=== PATIENT | male | born 1945 ===

== ENCOUNTER 2021-06-06 05:39 | Emergency (ER) | payer SELFPAY ==
[~2021-06-06] VITALS: Ht 162.6 cm; Wt 75.0 kg
--- NOTE | 2021-06-06 06:07 | PHYS DOC ---
General Adult HPI: HPI: Patient is a 76-year-old male presenting with granddaughter and [id number] for urinary retention. Onset was 3 days ago without any obvious trauma, ingestion, exposure, or mechanism of injury. Nothing known makes better or worse. Patient describes focal dull pressure and pain near bladder/suprapubic region. He has had episodes like this in the past in [place], states he typically has urinary retention of unknown etiology requiring placement of a Canales catheter that is removed later in the week. He has no known medical issues other than occasional urinary tract infections, takes no medications on a daily basis, has no other complaints today. Does admit he is fully vaccinated against COVID-19 Review of Systems: Review of Systems: Fourteen body systems of review of systems have been reviewed. See HPI for pertinent positives and negative responses, other linda all other systems are negative, non-pertinent or non-contributory Heart Score: C/O Chest Pain: No Risk Factors: Risk Factors: DM, Current or recent (<one month) smoker, HTN, HLP, family history of CAD, obesity. Risk Scores: Score 0 - 3: 2.5% MACE over next 6 weeks - Discharge Home Score 4 - 6: 20.3% MACE over next 6 weeks - Admit for Clinical Observation Score 7 - 10: 72.7% MACE over next 6 weeks - Early Invasive Strategies Physical Exam: PE: Constitutional: Well developed, well nourished, no acute distress, non-toxic appearance. HENT: Normocephalic, atraumatic, bilateral external ears normal, oropharynx moist, no oral exudates, nose normal. Eyes: PERRLA, EOMI, conjunctiva normal, no discharge. Neck: Normal range of motion, no tenderness, supple, no stridor. Cardiovascular: Heart rate regular, sinus rhythm, no murmurs rubs or gallops Lungs & Thorax: Bilateral breath sounds clear to auscultation Abdomen: Bowel sounds normal, soft, mild suprapubic discomfort with palpation, no rebound or guarding, no masses, no pulsatile masses. Nonsurgical abdomen, no peritoneal signs Skin: Warm, dry, no erythema, no rash. Back: No tenderness, no CVA tenderness. Extremities: No tenderness, no cyanosis, no clubbing, ROM intact, no edema. Neurologic: Alert and oriented X 3, grossly normal motor & sensory function, no focal deficits noted. Psychologic: Affect normal, judgement normal, mood normal. Current Patient Data: Labs: Laboratory Tests Test 06/06/21 06:04 06/06/21 06:10 White Blood Count 9.9 x10^3/uL Red Blood Count 4.51 x10^6/uL Hemoglobin 13.7 g/dL Hematocrit 40.7 % Mean Corpuscular Volume 90 fL Mean Corpuscular Hemoglobin 30 pg Mean Corpuscular Hemoglobin Concent 34 g/dL Red Cell Distribution Width 12.8 % Platelet Count 199 x10^3/uL Neutrophils (%) (Auto) 89 % Lymphocytes (%) (Auto) 6 % Monocytes (%) (Auto) 4 % Eosinophils (%) (Auto) 0 % Basophils (%) (Auto) 0 % Neutrophils # (Auto) 8.8 x10^3/uL Lymphocytes # (Auto) 0.6 x10^3/uL Monocytes # (Auto) 0.4 x10^3/uL Eosinophils # (Auto) 0.0 x10^3/uL Basophils # (Auto) 0.0 x10^3/uL Sodium Level 141 mmol/L Potassium Level 3.8 mmol/L Chloride Level 103 mmol/L Carbon Dioxide Level 28 mmol/L Anion Gap 10 Blood Urea Nitrogen 17 mg/dL Creatinine 0.9 mg/dL Estimated GFR (Cockcroft-Gault) 81.8 Glucose Level 129 mg/dL Calcium Level 8.6 mg/dL Troponin I High Sensitivity 10 ng/L Urine Collection Type U cath Urine Color Yellow Urine Clarity Clear Urine pH 7.0 Urine Specific [place] 1.010 Urine Protein Negative mg/dL Urine Glucose (UA) Negative mg/dL Urine Ketones (Stick) Negative mg/dL Urine Blood Moderate Urine Nitrite Negative Urine Bilirubin Negative Urine Urobilinogen Dipstick 0.2 mg/dL Urine Leukocyte Esterase Negative Urine RBC 3-5 /HPF Urine WBC 0 /HPF Urine Squamous Epithelial Cells None /LPF Urine Bacteria Few /HPF Vital Signs: Vital Signs Date Time Temp Pulse Resp B/P (MAP) Pulse Ox O2 Delivery O2 Flow Rate FiO2 06/06/21 06:33 98.1 86 22 220/141 (167) 97 Room Air 98.1 Vital Signs Date Time Temp Pulse Resp B/P (MAP) Pulse Ox O2 Delivery O2 Flow Rate FiO2 06/06/21 06:48 80 16 145/86 (105) 98 Room Air 06/06/21 06:33 98.1 98.1 EKG: EKG: [] Radiology/Procedures: Radiology/Procedures: [] Course & Med Decision Making: Course & Med Decision Making Airway patent, breathing unlabored, IV access and vitals obtained concerning for hypertension only History physical exam and comprehensive ER work-up obtained nonconcerning for any emergent or surgical issues Canales catheter replaced at the request of patient and family at bedside with ~550ml urine output and immediate relief in symptoms Disclosed entirety of ER work-up with patient who is now asymptomatic and family at bedside, discussed unknown cause of urinary retention and need for further work-up such as CT abdomen pelvis but they deferred. 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 Departure Departure Impression: Primary Impression: Urinary retention Disposition: HOME / SELF CARE / HOMELESS Condition: IMPROVED Referrals: NO PCP (PCP) Patient Instructions: Urinary Retention, Acute, Male MATT COOLEY DO Jun 06, 2021 06:06
[2021-06-06 06:31] LABS: BILIRUBIN,URINE NEGATIVE (NEG); CLARITY,URINE CLEAR; COLOR,URINE YELLOW; NITRITE,URINE NEGATIVE (NEG); PROTEIN,URINE NEGATIVE (NEG-TRACE); UROBILINOGEN,URINE 0.2 mg/dL (0.2 mg/dL)
[2021-06-06 06:54] LABS: CALCIUM 8.6 mg/dL (8.5-10.1); CREATININE 0.9 mg/dL (0.7-1.3); GFR 81.8; POTASSIUM 3.8 mmol/L (3.5-5.1)
[2021-06-06 06:55] LABS: BASO % 0 % (0-3); EOS % 0 % (0-3); HEMATOCRIT 40.7 % (39.0-53.0); HEMOGLOBIN 13.7 g/dL (13.0-17.5); LYMPH # 0.6 x10^3/uL (1.0-4.8); LYMPH % 6 % (24-48); MEAN CORPUSCULAR HEMOGLOBIN 30 pg (25-35); MEAN CORPUSCULAR HGB CONC 34 g/dL (31-37); MEAN CORPUSCULAR VOLUME 90 fL (79-100); MONO # 0.4 x10^3/uL (0.0-1.1); MONO % 4 % (0-9); NEUT # 8.8 x10^3/uL (1.8-7.7); NEUT % 89 % (31-73); PLATELET COUNT 199 x10^3/uL (140-400); RED BLOOD COUNT 4.51 x10^6/uL (4.30-5.70); RED CELL DISTRIBUTION WIDTH 12.8 % (11.5-14.5); WHITE BLOOD COUNT 9.9 x10^3/uL (4.0-11.0)
[2021-06-06 06:57] LABS: BACTERIA,URINE FEW /HPF (0-FEW); WBC,URINE 0 /HPF (0-4)
[2021-06-06 07:28] VITALS: BP 153/91
== END 2021-06-06 07:36 | disposition home or self-care (01) ==
LOC: ER 05:39
DX: R33.9 Retention of urine, unspecified (principal); I10 Essential (primary) hypertension
CPT/HCPCS: 36415; 51702; 80048; 81001; 84484; 85025; 99284

== ENCOUNTER 2021-06-07 13:19 | Emergency (ER) | payer SELFPAY ==
[~2021-06-07] VITALS: Ht 170.2 cm; Wt 77.2 kg
[2021-06-07] MEDS ORDERED: MORPHINE SULFATE 2 MG/ML INJ. IVP ONE (15:15)
--- NOTE | 2021-06-07 15:15 | PHYS DOC ---
Past Medical History Past Medical History: UTI Additional Past Medical Histor: urinary retention Past Surgical History: No Surgical History Smoking Status: Never Smoker Alcohol Use: None Drug Use: None General Adult EDM: Chief Complaint: BLOOD IN URINE HPI: HPI: Patient is a 76 year old male who presents to the emergency department after being discharged yesterday with bleeding from his urinary catheter. Patient reports that he had some issues with urinary retention, which is happened to him frequently in the past. He was given a Canales catheter yesterday with adequate drainage of his urine and resolution of symptoms. When he woke up today, there was blood in the tube and surrounding the urethral meatus. He reports that both blood and urine are leaking from both areas. He denies any trauma or injury, but states something may have happened during sleep. He reports associated pain not to the penis or scrotum, but more internal structures. Patient has no other complaints at this time. Patient is Swedish-speaking, so history and interview were conducted in Swedish. His son is also at the bedside to aid as well. Review of Systems: Review of Systems: ROS negative or noncontributory except as mentioned in HPI. Heart Score: C/O Chest Pain: No Current Medications: Current Medications Medications (Trade) Dose Ordered Sig/Rasta Start Time Stop Time Status Last Admin Dose Admin Morphine Sulfate (Morphine Sulfate) 2 mg 1X ONCE 06/07/21 15:15 06/07/21 15:16 UNV Physical Exam: PE: Constitutional: Well developed, well nourished, no acute distress, non-toxic appearance. Cardiovascular: Heart rate regular rhythm, no murmur. Lungs & Thorax: Bilateral breath sounds clear to auscultation. Abdomen: Bowel sounds normal, soft, no tenderness, no masses, no pulsatile masses. Genital: Canales catheter in place with blood surrounding meatus and noted in intertrigenous folds of the groin, no rash or other skin lesions, no edema or erythema. Catheter tubing with christian blood ~50cc. Skin: Warm, dry, no erythema, no rash. Current Patient Data: Labs: Laboratory Tests Test 06/07/21 15:28 06/07/21 15:32 White Blood Count 6.9 x10^3/uL (4.0-11.0) Red Blood Count 4.54 x10^6/uL (4.30-5.70) Hemoglobin 13.7 g/dL (13.0-17.5) Hematocrit 40.2 % (39.0-53.0) Mean Corpuscular Volume 89 fL (79-100) Mean Corpuscular Hemoglobin 30 pg (25-35) Mean Corpuscular Hemoglobin Concent 34 g/dL (31-37) Red Cell Distribution Width 13.1 % (11.5-14.5) Platelet Count 202 x10^3/uL (140-400) Neutrophils (%) (Auto) 72 % (31-73) Lymphocytes (%) (Auto) 17 % (24-48) Monocytes (%) (Auto) 10 % (0-9) Eosinophils (%) (Auto) 1 % (0-3) Basophils (%) (Auto) 1 % (0-3) Neutrophils # (Auto) 5.0 x10^3/uL (1.8-7.7) Lymphocytes # (Auto) 1.2 x10^3/uL (1.0-4.8) Monocytes # (Auto) 0.7 x10^3/uL (0.0-1.1) Eosinophils # (Auto) 0.1 x10^3/uL (0.0-0.7) Basophils # (Auto) 0.1 x10^3/uL (0.0-0.2) Sodium Level 140 mmol/L (136-145) Potassium Level 4.0 mmol/L (3.5-5.1) Chloride Level 103 mmol/L (98-107) Carbon Dioxide Level 27 mmol/L (21-32) Anion Gap 10 (6-14) Blood Urea Nitrogen 17 mg/dL (8-26) Creatinine 0.9 mg/dL (0.7-1.3) Estimated GFR (Cockcroft-Gault) 81.8 BUN/Creatinine Ratio 19 (6-20) Glucose Level 95 mg/dL (70-99) Calcium Level 8.5 mg/dL (8.5-10.1) Total Bilirubin 0.5 mg/dL (0.2-1.0) Aspartate Amino Transf (AST/SGOT) 25 U/L (15-37) Alanine Aminotransferase (ALT/SGPT) 25 U/L (16-63) Alkaline Phosphatase 120 U/L (46-116) Total Protein 7.1 g/dL (6.4-8.2) Albumin 3.5 g/dL (3.4-5.0) Albumin/Globulin Ratio 1.0 (1.0-1.7) SARS-CoV-2 Antigen (Rapid) Positive (NEGATIVE) Vital Signs: Vital Signs Date Time Temp Pulse Resp B/P (MAP) Pulse Ox O2 Delivery O2 Flow Rate FiO2 06/07/21 15:51 98.4 67 23 164/110 (128) 95 98.4 06/07/21 15:49 14 95 Room Air 06/07/21 15:19 98.4 62 17 173/98 (123) 95 Room Air 98.4 06/07/21 14:12 98.4 62 18 180/100 (126) 98 Room Air 98.4 Course & Med Decision Making: Course & Med Decision Making Pertinent Labs and Imaging studies reviewed. (See chart for details) Patient is a 76-year-old male with history of acute on chronic urinary retention who was seen in the emergency department yesterday. In reviewing documentation from yesterday's visit, patient presented with urinary retention that was consistent with his prior episodes. Canales catheter was placed and approximately 550 cc of clear yellow urine was expressed. Patient had a resolution of symptoms and was discharged hemodynamically stable without any Canales catheter complications. Presentation today, he has christian blood both in the urinary catheter and in the urethral meatus. His presentation is concerning for urogenital trauma. Call was placed almost immediately for urology transfer. In the meantime, labs including type and screen and Covid test were ordered. Patient was accepted at [facility] by Dr. Evans in conversation with his nurse practitioner Johana Beatty. He will be admitted to [facility] with urology consult. They will perform necessary imaging on arrival at [facility]. Patient and his son were informed of location and protocol for transfer. They understand and are agreeable to transfer to facility with higher level of care and specialist availability. Dragon Disclaimer: Dragon Disclaimer: This electronic medical record was generated, in whole or in part, using a voice recognition dictation system. Departure Departure Impression: Primary Impression: Christian hematuria Additional Impression: Canales catheter in place Disposition: 02 SHORT TERM [facility]OSPITAL Condition: GUARDED Referrals: NO PCP (PCP) BRYAN ALVAREZ Jun 07, 2021 15:15
[2021-06-07 15:43] LABS: BASO # 0.1 x10^3/uL (0.0-0.2); BASO % 1 % (0-3); EOS # 0.1 x10^3/uL (0.0-0.7); EOS % 1 % (0-3); HEMATOCRIT 40.2 % (39.0-53.0); HEMOGLOBIN 13.7 g/dL (13.0-17.5); LYMPH # 1.2 x10^3/uL (1.0-4.8); LYMPH % 17 % (24-48); MEAN CORPUSCULAR HEMOGLOBIN 30 pg (25-35); MEAN CORPUSCULAR HGB CONC 34 g/dL (31-37); MEAN CORPUSCULAR VOLUME 89 fL (79-100); MONO # 0.7 x10^3/uL (0.0-1.1); MONO % 10 % (0-9); NEUT % 72 % (31-73); PLATELET COUNT 202 x10^3/uL (140-400); RED BLOOD COUNT 4.54 x10^6/uL (4.30-5.70); RED CELL DISTRIBUTION WIDTH 13.1 % (11.5-14.5); WHITE BLOOD COUNT 6.9 x10^3/uL (4.0-11.0)
[2021-06-07 15:52] LABS: CALCIUM 8.5 mg/dL (8.5-10.1); CREATININE 0.9 mg/dL (0.7-1.3); GFR 81.8
[2021-06-07 15:57] LABS: ALBUMIN 3.5 g/dL (3.4-5.0); TOTAL BILIRUBIN 0.5 mg/dL (0.2-1.0); TOTAL PROTEIN 7.1 g/dL (6.4-8.2)
[2021-06-07 17:49] VITALS: BP 170/95
== END 2021-06-07 19:16 | disposition short-term general hospital (02) ==
LOC: ER 13:19
DX: U07.1 COVID-19 (principal); T83.83XA Hemorrhage due to genitourinary prosthetic devices, implants and grafts, initial encounter; R31.9 Hematuria, unspecified; R33.9 Retention of urine, unspecified; Y84.6 Urinary catheterization as the cause of abnormal reaction of the patient, or of later complication, without mention of misadventure at the time of the procedure; Y92.89 Other specified places as the place of occurrence of the external cause
CPT/HCPCS: 36415; 80053; 85025; 86850; 86900; 86901; 87426; 96374; 99285; J2270; U0005; U0003

== ENCOUNTER 2021-06-08 18:09 | Emergency (ER) | payer SELFPAY ==
[2021-06-07 17:49] VITALS: BP 170/95
== END 2021-06-08 18:17 | disposition left against medical advice (07) ==
LOC: ER 18:09
DX: T83.098A Other mechanical complication of other urinary catheter, initial encounter (principal); Z53.21 Procedure and treatment not carried out due to patient leaving prior to being seen by health care provider; Y92.89 Other specified places as the place of occurrence of the external cause

== ENCOUNTER 2021-06-09 13:19 | Emergency (ER) | payer SELFPAY ==
[~2021-06-09] VITALS: Ht 170.2 cm; Wt 76.6 kg
[2021-06-09 14:59] VITALS: BP 170/87
--- NOTE | 2021-06-09 16:01 | PHYS DOC ---
Past Medical History Past Medical History: UTI Additional Past Medical Histor: urinary retention Past Surgical History: No Surgical History Smoking Status: Never Smoker Alcohol Use: None Drug Use: None General Adult EDM: Chief Complaint: URINE CATHETER PROBLEM HPI: HPI: Patient is a 76 year old male patient with history of urinary retention from unknown etiology intermittently for a couple years who presents to the ED today complaining of urine leaking around his Canales catheter. He states the catheter was replaced on June 07, 2021 at [facility]. Patient states he originally had the catheter placed on June 06, 2021 at [facility] for urinary retentions. He came back on June 07 complaining of hematuria and was transferred to [facility] where the catheter was changed and he was sent back home. He presents today stating there is urine leaking around the catheter and he wants it removed. Patient denies any fever, abdominal pain, flank pain, nausea, vomiting. Patient is from [place], is here visiting his family and states he will be back to [place] on June 16, 2021 and will see a urologist there. Patient is Estonian-speaking and interpretation was provided by the grandson as well as granddaughter Review of Systems: Review of Systems: Constitutional: Denies fever or chills. [] GI: Denies abdominal pain, nausea, vomiting, bloody stools or diarrhea. [] : Reports urine leaking around the catheter. Denies dysuria. [] Musculoskeletal: Denies back pain or joint pain. [] Integument: Denies rash. [] Neurologic: Denies headache, focal weakness or sensory changes. [] Psychiatric: Denies depression or anxiety. [] Heart Score: C/O Chest Pain: N/A Risk Factors: Risk Factors: DM, Current or recent (<one month) smoker, HTN, HLP, family history of CAD, obesity. Risk Scores: Score 0 - 3: 2.5% MACE over next 6 weeks - Discharge Home Score 4 - 6: 20.3% MACE over next 6 weeks - Admit for Clinical Observation Score 7 - 10: 72.7% MACE over next 6 weeks - Early Invasive Strategies Allergies: Allergies: Allergies Coded Allergies Type Severity Reaction Last Updated Verified No Known Drug Allergies 06/07/21 No Physical Exam: PE: Constitutional: Well developed, well nourished, no acute distress, non-toxic appearance. [] Abdomen: Bowel sounds normal, soft, no tenderness, no masses, no pulsatile masses. [] Canales catheter in place, no leaking noted around the Canales. Roughly 200 cc of blood-tinged urine noted in the Canales bag. Skin: Warm, dry, no erythema, no rash. [] Back: No tenderness, no CVA tenderness. [] Extremities: No tenderness, no cyanosis, no clubbing, ROM intact, no edema. [] Neurologic: Alert and oriented X 3, normal motor function, normal sensory function, no focal deficits noted. [] Psychologic: Affect normal, judgement normal, mood normal. [] Current Patient Data: Vital Signs: Vital Signs Date Time Temp Pulse Resp B/P (MAP) Pulse Ox O2 Delivery O2 Flow Rate FiO2 06/09/21 14:59 98.6 60 16 170/87 (114) 99 Room Air 98.6 EKG: EKG: [] Radiology/Procedures: Radiology/Procedures: [] Course & Med Decision Making: Course & Med Decision Making Pertinent Labs and Imaging studies reviewed. (See chart for details) This is a 76-year-old male patient presented to the ED today complaining of urine leaking around his Canales catheter that was replaced on June 07, 2021 patient wants it removed. I had a very long conversation with patient and family members patient continues to request the catheter to be removed. He states he is returning back to [place] on June 16, 2021 and will see a urologist there. He is adamant about seeing a urologist in [facility]. Consulted with Dr. Sidhu. I remove the catheter at 1540 with no issues and told patient to return to the ED if he does not void in 8 hours. He left without his paperwork Dragon Disclaimer: Arturo Disclaimer: This electronic medical record was generated, in whole or in part, using a voice recognition dictation system. Departure Departure Impression: Primary Impression: Urinary retention Disposition: HOME / SELF CARE / HOMELESS Condition: STABLE Referrals: NO PCP (PCP) REESE PEARSON APRN Jun 09, 2021 16:01
== END 2021-06-09 15:45 | disposition home or self-care (01) ==
LOC: ER 13:19
DX: R33.9 Retention of urine, unspecified (principal)
CPT/HCPCS: 99281

== ENCOUNTER 2021-06-14 02:16 | Emergency (ER) | payer SELFPAY ==
[~2021-06-14] VITALS: Ht 162.6 cm; Wt 68.2 kg
--- NOTE | 2021-06-14 02:28 | PHYS DOC ---
Past Medical History Past Medical History: UTI Additional Past Medical Histor: urinary retention Past Surgical History: No Surgical History Smoking Status: Never Smoker Alcohol Use: None Drug Use: None General Adult EDM: Chief Complaint: URINARY RETENTION HPI: HPI: Patient is a 76 year old male who presents here with urinary retention. He was able to last urinated about 2-1/2 hours ago. He has been seen here multiple times recently for urinary retention, requiring Canales catheterization. He was here twice at the end of May, and on one of his visits he was transferred to [facility] for blood at his urethral meatus, he had a catheter placed at that time, he was seen by urologist who recommended discharge home, continue to keep the catheter in place, and follow-up with a urologist at his home in [place], where he is supposed to return in 2 days from today. He came back here 5 days ago and demanded that his catheter be removed. It was suggested that it remain in place, but the patient and his family were extremely insistent that it be removed. He reportedly was able to urinate without difficulty until this morning. He reports suprapubic pain and discomfort and fullness. He denies nausea, vomiting, fevers, chills, denies constipation or diarrhea. No blood at his urethral meatus. No drainage or discharge from his urethra. No scrotal pain or swelling. He has been eating and drinking normally. Of note, he tested positive for COVID-19 on 07 June. He has been fully vaccinated against COVID-19, and his family member that is with him here is in denial about the COVID-19 test being positive, is demanding that we repeat the test here today, because he supposed to fly home to [place] in 2 days. Review of Systems: Review of Systems: Constitutional: Denies fever or chills. [] HENT: Denies nasal congestion or sore throat. [] Respiratory: Denies cough or shortness of breath. [] Cardiovascular: Denies chest pain or edema. [] GI: Suprapubic discomfort and fullness, no focal abdominal pain, no nausea, vomiting, diarrhea, const : Urinary retention, denied gross hematuria or dysuria Musculoskeletal: Denies back pain or joint pain. [] Integument: Denies rash. [] Neurologic: Denies headache, focal weakness or sensory changes. [] Psychiatric: Denies depression or anxiety. [] Heart Score: C/O Chest Pain: No Risk Factors: Risk Factors: DM, Current or recent (<one month) smoker, HTN, HLP, family history of CAD, obesity. Risk Scores: Score 0 - 3: 2.5% MACE over next 6 weeks - Discharge Home Score 4 - 6: 20.3% MACE over next 6 weeks - Admit for Clinical Observation Score 7 - 10: 72.7% MACE over next 6 weeks - Early Invasive Strategies Allergies: Allergies: Allergies Coded Allergies Type Severity Reaction Last Updated Verified No Known Drug Allergies 06/07/21 No Physical Exam: PE: Constitutional: Well developed, well nourished, no acute distress, non-toxic appearance. [] HENT: Normocephalic, atraumatic Eyes: Conjunctiva normal, no discharge. [] Neck: Trachea midline Cardiovascular:Heart rate regular rhythm, +2 radial and +2 posterior tibial pulse Lungs & Thorax: Bilateral breath sounds clear to auscultation [] Abdomen: Abdomen is soft, nondistended, suprapubic tenderness and bladder fullness palpated on exam, mild suprapubic tenderness, no guarding or rebound tenderness, no flank abdominal ecchymoses, no CVA tenderness, normal bowel sounds, no palpable masses otherwise Skin: Warm, dry, no erythema, no rash. [] Back: No tenderness, no CVA tenderness. [] Extremities: No tenderness, no cyanosis, no clubbing, ROM intact, no edema. [] Neurologic: Alert and oriented X 3, normal motor function, normal sensory function, no focal deficits noted. [] Psychologic: Affect normal, judgement normal, mood normal. [] EKG: EKG: [] Radiology/Procedures: Radiology/Procedures: [] Course & Med Decision Making: Course & Med Decision Making Pertinent Labs and Imaging studies reviewed. (See chart for details) A Canales catheter was placed and the patient felt immediate relief. His abdomen is soft, his bladder is no longer distended, he had output of greater than 600 mL of clear urine. UA appears unremarkable. His blood pressure was initially markedly elevated, though does improve significantly after his catheter is placed. He is scheduled to return home via airplane in 2 days back to [place]. I explained that he should not fly being Covid positive. I understand that he is asymptomatic, but the fact remains that he did have a positive test here on June 07. I explained I will not repeat this test, because even as a patient who might not be vaccinated, with symptomatic Covid, they may remain positive for several weeks afterward. Home care instructions are given. The patient is to absolutely keep the catheter in place until he follows up with urology. If he is going to extend his stay here in [facility], he should follow-up with a urologist at [facility]. Return precautions are given. Arturo Disclaimer: Arturo Disclaimer: This electronic medical record was generated, in whole or in part, using a voice recognition dictation system. Departure Departure Impression: Primary Impression: Acute urinary retention Additional Impression: Asymptomatic COVID-19 virus infection Disposition: HOME / SELF CARE / HOMELESS Condition: STABLE Referrals: NO PCP (PCP) Patient Instructions: Urinary Retention, Acute, Male Additional Instructions: You must keep your Canales catheter in place until you follow-up with urology. If this is taken out again too soon, you will will begin to retain urine again, and you will require repeat catheterization. There is no infection in your urine at this time. Please contact the urologist at [facility] for follow-up, as you may need to extend your stay here in [facility], since you have COVID-19. Otherwise, please follow-up with your urologist and your [facility] doctor in [place] upon return home. You may return at anytime to the ER for any severe abdominal pain, vomiting, fever, or any other concerns. MIREYA ELIZABETH DO Jun 14, 2021 02:27
[2021-06-14 02:56] LABS: BILIRUBIN,URINE NEGATIVE (NEG); CLARITY,URINE CLEAR; COLOR,URINE YELLOW; NITRITE,URINE NEGATIVE (NEG); PROTEIN,URINE NEGATIVE (NEG-TRACE); UROBILINOGEN,URINE 0.2 mg/dL (0.2 mg/dL)
[2021-06-14 03:12] LABS: BACTERIA,URINE 0 /HPF (0-FEW); RBC,URINE OCC /HPF (0-2); WBC,URINE OCC /HPF (0-4)
[2021-06-14 03:36] VITALS: BP 150/81
== END 2021-06-14 03:40 | disposition home or self-care (01) ==
LOC: ER 02:16
DX: R33.9 Retention of urine, unspecified (principal)
CPT/HCPCS: 51702; 81001; 99284

== ENCOUNTER 2021-06-14 17:14 | Emergency (ER) | payer SELFPAY ==
[2021-06-14 03:36] VITALS: BP 150/81
== END 2021-06-14 23:15 | disposition left against medical advice (07) ==
LOC: ER 17:14
DX: T83.098A Other mechanical complication of other urinary catheter, initial encounter (principal); Z53.21 Procedure and treatment not carried out due to patient leaving prior to being seen by health care provider; X58.XXXA Exposure to other specified factors, initial encounter; Y93.89 Activity, other specified; Y92.89 Other specified places as the place of occurrence of the external cause; Y99.8 Other external cause status